=== PATIENT | male | born 1980 | race Caucasian/White ===

== ENCOUNTER 2021-11-14 21:17 | Emergency (ER) | payer OTHER ==
[2021-11-14 22:30] LABS: HEMOGLOBIN 15.8 gm/dl (14.0-17.5); RED BLOOD COUNT 5.17 M/UL (4.20-5.50); WHITE BLOOD COUNT 11.1 K/UL (4.5-11.0)
[2021-11-14 22:55] LABS: BUN/CREATININE RATIO 31 (0-10)
[2021-11-15] MEDS ORDERED: PROTONIX20 MG PO ×2 (03:40→03:45)
[2021-11-15] MEDS ORDERED: ZOFRAN ODT 4 MG4 MG SL (03:40)
== END 2021-11-15 03:55 | disposition home or self-care (01) ==
LOC: ER1 21:17
PROVIDERS: Student in an Organized Health Care Education/Training Program
DX: K20.90 Esophagitis, unspecified without bleeding (principal); I10 Essential (primary) hypertension; F17.210 Nicotine dependence, cigarettes, uncomplicated
CPT/HCPCS: 80053; 83690; 85025; 96374; 96375; 99284; C9113; J2405; Q9967

== ENCOUNTER 2021-11-17 20:34 | Emergency (ER) | payer OTHER ==
[~2021-11-17 20:34] MED LIST: PROTONIX20 MG PO; ZOFRAN ODT 4 MG4 MG SL
[2021-11-17 22:00] LABS: WHITE BLOOD COUNT 11.6 K/UL (4.5-11.0)
[2021-11-17 22:19] LABS: BUN/CREATININE RATIO 17 (0-10)
[2021-11-17 22:20] LABS: HEMOGLOBIN 13.3 gm/dl (14.0-17.5); RED BLOOD COUNT 4.35 M/UL (4.20-5.50)
[2021-11-18] MEDS ORDERED: ONDANSETRON ODT4 MG PO (01:16)
== END 2021-11-18 01:40 | disposition home or self-care (01) ==
LOC: ER1 20:34
PROVIDERS: Emergency Medicine
DX: K30 Functional dyspepsia (principal); Z20.822 Contact with and (suspected) exposure to COVID-19; F17.210 Nicotine dependence, cigarettes, uncomplicated; K21.9 Gastro-esophageal reflux disease without esophagitis
CPT/HCPCS: 0240U; 80053; 81001; 83690; 85025; 99284